=== PATIENT | male | born 1940 | race Caucasian/White ===

== ENCOUNTER 2019-02-08 19:43 | Emergency (ER) | payer MEDICARE ==
[2019-02-08] MEDS ORDERED: Aspirin 81 mg CHEW TAB* 81 MG TAB.CHEW PO ONE (19:57)
--- NOTE | 2019-02-08 20:02 | UC ---
Cardiac HPI - HPI Summary HPI Summary: 78-year-old male comes in with a chief complaint of left arm pain. At about 7 PM this evening which is 45 minutes ago he started with left arm pain last about 20 minutes. It is gradually going away on its own. Denies any nausea or sweating or shortness of breath. He was wondering if this might be his heart. - History of Current Complaint Stated Complaint: LEFT ARM PAIN Time Seen by Provider: 02/08/19 19:46 - Allergy/Home Medications Allergies/Adverse Reactions: Allergies Allergy/AdvReac Type Severity Reaction Status Date / Time celecoxib [From Celebrex] Allergy Unknown recommended Verified 02/08/19 20:06 to avoid ketorolac [From Toradol] Allergy Unknown recommended Verified 02/08/19 20:06 to avoid NSAIDS (Non-Steroidal Allergy Unknown recommended Verified 02/08/19 20:06 Anti-Inflamma to avoid Home Medications: Home Medications Hydrochlorothiazide TAB* [Hydrodiuril TAB*] 25 mg PO DAILY 02/08/19 [History Confirmed 02/08/19] Levothyroxine TAB* [Synthroid TAB*] 75 mcg PO DAILY 02/08/19 [History Confirmed 02/08/19] Losartan TAB* [Cozaar TAB*] 50 mg PO DAILY 02/08/19 [History Confirmed 02/08/19] Metoprolol Tartrate TAB* [Lopressor TAB*] 50 mg PO DAILY 02/08/19 [History Confirmed 02/08/19] Omeprazole CAP (NF) [Prilosec CAP* 20 MG] 20 mg PO DAILY 02/08/19 [History Confirmed 02/08/19] Ranitidine TAB (NF) [Zantac TAB (NF)] 150 mg PO DAILY 02/08/19 [History Confirmed 02/08/19] Sildenafil Citrate [Viagra] PRN 02/08/19 [History] PMH/Surg Hx/FS Hx/Imm Hx Previously Healthy: Yes Cardiovascular History: Hypertension - Family History Known Family History: Positive: Non-Contributory Review of Systems All Other Systems Reviewed And Are Negative: Yes Constitutional: Positive: Negative Skin: Positive: Negative Eyes: Positive: Negative ENT: Positive: Negative Respiratory: Positive: Negative Cardiovascular: Positive: Other - SEE HPI Gastrointestinal: Positive: Negative Motor: Positive: Negative Neurovascular: Positive: Negative Musculoskeletal: Positive: Negative Neurological: Positive: Negative Psychological: Positive: Negative Is Patient Immunocompromised?: No Physical Exam Triage Information Reviewed: Yes Appearance: Well-Appearing, No Pain Distress, Well-Nourished Vital Signs Reviewed: Yes Eye Exam: Normal Eyes: Positive: Conjunctiva Clear Neck: Positive: Supple Respiratory: Positive: Lungs clear, Normal breath sounds, No respiratory distress Cardiovascular: Positive: RRR Musculoskeletal: Positive: Strength Intact, ROM Intact, Other: - NL B/L RADIAL PULSES. ARMS FROM. Neurological: Positive: Alert, Muscle Tone Normal Psychological Exam: Normal Psychological: Positive: Normal Response To Family, Age Appropriate Behavior Skin Exam: Normal Diagnostics - EKG Cardiac Rate: NL - AT 1746 Cardiac Rhythm: Sinus: Normal - 63BPM Ectopy: None ST Segment: Normal - Assessment/Plan Course Of Treatment: Patient transferred to the [facility] emergency department for cardiac evaluation by ambulance. I spoke with a medical provider at the [facility] emergency department. Aspirin 324mg po given in clinic. - Clinical Impression Provider Diagnosis: Left arm pain Discharge - Sign-Out/Discharge Documenting (check all that apply): Patient Departure All imaging exams completed and their final reports reviewed: No Studies - Discharge Plan Condition: Stable Disposition: TRANS HIGHER LVL OF CARE FAC - Billing Disposition and Condition Condition: STABLE Disposition: Trans Higher Lvl of Care Fac
--- OUTSIDE RECORDS SUMMARY | 2019-02-08 20:08 | XMS REPORT | Continuity of Care Document ---
:1940 External Reference #:[id number] Author Name Kenya Garcia FNP Address [address] [place] [id number] Care Team Providers Name Role Phone Kenya Garcia NP Care Team Information Lavatory Attendant Unavailable Kenya Garcia NP Primary Care Physician Unavailable Payers Date Identification Numbers Payment Provider Subscriber Policy Number: [id number] [employer] Jose Mack PayID: [id number] [address] [place] [address] Expires: 2018 Policy Number: [id number] [facility] Health [facility] Jose Mack PayID: [id number] [address] [place] [address] Problems Active Problems Provider Date Hypothyroidism Kenya Garcia FNP Onset: 04/04/2014 Benign essential hypertension Kenya Garcia FNP Onset: 04/04/2014 Thrombocytopenic disorder Khalida Kirkland FNP Onset: 09/19/2013 Gastroesophageal reflux disease Khalida Kirkland FNP Onset: 09/18/2013 Chronic kidney disease stage 3 Kenya Garcia FNP Onset: 10/20/2016 Note: Lab: 10/13/16 - Comprehensive Metabolic Panel Hypercalcemia Deanna Gaviria MD Onset: 11/24/2017 Gastro-esophageal reflux disease with Zaid Zhong MD,FACS Onset: 2017 esophagitis Diaphragmatic hernia Kushal Delvalle MD Onset: 06/21/2018 Heartburn Zaid Zhong MD,FACS Onset: 06/28/2018 Resolved Problems Disorder of peritoneum Khalida Kirkland FNP Onset: 09/19/2013 Resolved: 04/10/2015 Decreased renal function Kenya Garcia MAYURI Onset: 07/22/2016 Resolved: 12/15/2016 Note: BUN 27, creatine 1.5 Family History Date Family Member(s) Observation Comments General Non Contributory Father Multiple Sclerosis Mother No Current Problems Social History Type Date Description Comments Sex Unknown Marital Status Single Lives With signficant other- is not Home Environment Lives With girl friend Diet Patient follows no dietary restrictions Occupation Retired Occupation [employer] Work Status Retired Tobacco Use Start: Unknown End: Former Cigarette Smoker started age 15 - 29 + Unknown pack year history - now smoking 8+ pipes a day Smoking Status Reviewed: 12/20/18 Former Cigarette Smoker started age 15 - 29 + pack year history - now smoking 8+ pipes a day Smokeless Tobacco Former Smokeless Tobacco User, Used 10 Times Daily ETOH Use Occasionally consumes drink a few times a alcohol month Tobacco Use Start: Unknown Patient is a current smoker, smokes every day Recreational Drug Use Denies Drug Use Tobacco Use Start: Unknown smokes a pipe Allergies, Adverse Reactions, Alerts Description No Known Drug Allergies Medications Active Medications SIG Qnty Indications Ordering Date Provider Omeprazole 1 by mouth every 30caps K21.9 Mook, 20mg Capsules DR gage Fatima MD 9 Losartan Potassium 1 by mouth every 90tabs Myron Mackenzie, 50mg Tablets day 8 Levothyroxine Sodium 1 by mouth every 30tabs E03.9 [place], 75mcg day Jenniferleigh, 7 Tablets CATERING COORDINATOR Viagra use one hour prior 9tabs [facility], 100mg Tablets to sexual Jenniferleigh, 6 intercourse CATERING COORDINATOR Metoprolol Succinate ER 1 by mouth every 30tabs Clune, 50mg day Jenniferleigh, 4 Tablets ER 24HR CATERING COORDINATOR Hydrochlorothiazide 1 by mouth every 30tabs Clune, 25mg day Jenniferleigh, 0 Tablets CATERING COORDINATOR Dok take one capsule 60caps Clune, 100mg Capsules by mouth twice a Jenniferleigh, 0 day as needed CATERING COORDINATOR Miralax 1 packet by mouth Unknown 3350NF Packet daily as needed 0 for constipation Ranitidine 150 Maximum 1 tab by mouth 30tabs [place], Strength once a day Jenniferleigh, 0 150mg Tablets CATERING COORDINATOR History Medications Omeprazole take 1 capsule by 30caps K22.10 Myron Mackenzie 01/11/2018 - 40mg mouth once daily 12/20/[address] Villegas 1 by mouth every day 90tabs Khadra, 11/01/2017 - 80mg Tablets MD Deanna 04/12/2018 Miralax 1 tablespoon in 8 510gm K59.00 [place], 10/13/2017 - 3350NF Powder ounces of water once [facility] 03/03/2018 to twice a day , CATERING COORDINATOR Colace one once a day for 90caps K59.00 [place], 09/29/2017 - 100mg Capsules constipation [facility] 03/03/2018 , CATERING COORDINATOR Ranitidine HCL 1 by mouth twice 60tabs [place], 12/23/2016 - 150mg daily for acid [facility] 06/28/2018 Tablets reflux , CATERING COORDINATOR Levothyroxine Sodium take 1 tablet by 90tabs E03.9 [place], 12/17/2015 - mouth once daily [facility] 07/07/2017 50mcg Tablets , CATERING COORDINATOR Omeprazole 1 by mouth every day 90caps K21.9 [place], 12/17/2015 - 40mg [facility] 12/23/2016 Capsules , CATERING COORDINATOR Zostavax to be given 1units [place], [facility] 115[facility]0.65[facility] , CATERING COORDINATOR Solution Rec Cialis 1 by mouth every day 4tabs N52.2 [place], 04/10/2015 - 5mg Tablets (*in place of Jenniferleigh Unknown viagra*) , CATERING COORDINATOR Z76.0 Hydrochlorothiazide take 1 tablet by 90tabs I10 [place], 04/10/2015 - 25mg mouth once daily [facility], 11/01/2017 Tablets CATERING COORDINATOR Prednisone 3 tabs daily 10tabs Viv 09/20/2014 - 20mg Tablets MD Alisson 01/01/2015 Viagra one tablet by 6tabs 607.84 Nam, 05/14/2014 - 50mg Tablets mouth 1 hour MD Alisson 04/10/2015 prior to sexual intercourse Naproxen Sodium otc as per Viv, 04/04/2014 - 220mg package MD Alisson 06/06/2015 Capsules directions as needed Calcium 500/D 2 tablets po qday 60tabs Viv, 11/02/2013 - MD Alisson 10/27/2017 [id number] Tablets Ferrous Sulfate 1 po bid 30tabs Viv, 09/19/2013 - 325(65Fe) MD Alisson Unknown mg Tablets Levothyroxine Sodium 1 by mouth every 30tabs E03.9 [place], 09/18/2013 - 25mcg gage Zambrano, 12/17/2015 Tablets CATERING COORDINATOR Omeprazole 1 by mouth every 90caps K21.9 [facility], 09/15/2013 - 20mg Capsules DR gage Zambrano, 12/17/2015 CATERING COORDINATOR Sennosides 1po bid 120tabs Nam, 09/15/2013 - 8.6mg Tablets MD Alisson Unknown Prednisone PO Daily - as per Unknown - 5mg Tablets Hem/Onc 01/01/15 04/10/2015 Calcium 600+D High 2 by mouth every Unknown - Potency day->holding due 11/01/2017 [id number] to hypercalcemia Tablets Immunizations CPT Code Status Date Vaccine Lot # [id number] Given 06/22/2018 Influenza High Dose [id number] 83325 Given 07/06/2017 Influenza High Dose [id number] Given 07/01/2016 Influenza Vaccine (Fluzone) Age 3 And Older [id number] 77733 Given 07/01/2016 Pneumococcal Conjugate Vaccine 13 Valent For [id number] Intramuscular Use 74714 Given 06/06/2015 Pneumovax Injection [id number] Q2038 Given 05/27/2015 Influenza Vaccine (Fluzone) Age 3 And Older [id number] Vital Signs Date Vital Result Comment 12/20/2018 10:02am BP Systolic 90 mmHg BP Diastolic 62 mmHg Heart Rate 86 /min Respiratory Rate 18 /min Height 68 inches 5'8" Weight 206.00 lb BMI (Body Mass Index) 31.3 kg/m2 BSA (Body Surface Area) 2.07 m2 [place] body weight in kilograms 70 kg O2 % BldC Oximetry 98 % 12/20/2018 8:35am BP Systolic Sitting Left Arm 100 mmHg BP Diastolic Sitting Left Arm 56 mmHg Heart Rate 78 /min Respiratory Rate 16 /min Height 68 inches 5'8" Weight 206.00 lb BMI (Body Mass Index) 31.3 kg/m2 BSA (Body Surface Area) 2.07 m2 [place] body weight in kilograms 70 kg O2 % BldC Oximetry 98 % Ra 12/13/2018 9:54am BP Systolic Sitting Right Arm 110 mmHg BP Diastolic Sitting Right Arm 68 mmHg Body Temperature 97.2 F Heart Rate 63 /min Respiratory Rate 18 /min Height 68 inches 5'8" Weight 206.00 lb BMI (Body Mass Index) 31.3 kg/m2 BSA (Body Surface Area) 2.07 m2 [place] body weight in kilograms 70 kg O2 % BldC Oximetry 97 % Ra 06/28/2018 2:46pm BP Systolic 119 mmHg BP Diastolic 72 mmHg Heart Rate 66 /min Respiratory Rate 17 /min Height 68 inches 5'8" Weight 202.00 lb BMI (Body Mass Index) 30.7 kg/m2 BSA (Body Surface Area) 2.05 m2 [place] body weight in kilograms 70 kg O2 % BldC Oximetry 93 % 06/22/2018 2:38pm BP Systolic Sitting Right Arm 122 mmHg BP Diastolic Sitting Right Arm 70 mmHg Body Temperature 97.4 F Heart Rate 67 /min Respiratory Rate 22 /min Height 68 inches 5'8" Weight 199.12 lb BMI (Body Mass Index) 30.3 kg/m2 BSA (Body Surface Area) 2.04 m2 [place] body weight in kilograms 70 kg O2 % BldC Oximetry 90 % 06/21/2018 8:28am BP Systolic Sitting Left Arm 110 mmHg BP Diastolic Sitting Left Arm 60 mmHg Heart Rate 72 /min Respiratory Rate 16 /min Height 68 inches 5'8" Weight 201.00 lb BMI (Body Mass Index) 30.6 kg/m2 BSA (Body Surface Area) 2.05 m2 [place] body weight in kilograms 70 kg 05/25/2018 10:25am BP Systolic Sitting Left Arm 110 mmHg BP Diastolic Sitting Left Arm 68 mmHg Body Temperature 97.8 F Heart Rate 61 /min Height 68 inches 5'8" Weight 194.00 lb BMI (Body Mass Index) 29.5 kg/m2 BSA (Body Surface Area) 2.02 m2 [place] body weight in kilograms 70 kg O2 % BldC Oximetry 97 % 04/11/2018 10:03am BP Systolic Sitting Right Arm 116 mmHg BP Diastolic Sitting Right Arm 70 mmHg Heart Rate 67 /min Respiratory Rate 14 /min Height 68 inches 5'8" Weight 192.50 lb BMI (Body Mass Index) 29.3 kg/m2 BSA (Body Surface Area) 2.01 m2 [place] body weight in kilograms 70 kg O2 % BldC Oximetry 97 % 03/03/2018 8:41am BP Systolic Sitting Left Arm 103 mmHg BP Diastolic Sitting Left Arm 64 mmHg Heart Rate 65 /min Respiratory Rate 16 /min Height 68 inches 5'8" Weight 189.00 lb BMI (Body Mass Index) 28.7 kg/m2 BSA (Body Surface Area) 2.00 m2 [place] body weight in kilograms 70 kg 01/11/2018 8:54am BP Systolic Sitting Left Arm 100 mmHg BP Diastolic Sitting Left Arm 60 mmHg Heart Rate 80 /min Respiratory Rate 16 /min Height 68 inches 5'8" Weight 188.00 lb BMI (Body Mass Index) 28.6 kg/m2 BSA (Body Surface Area) 1.99 m2 [place] body weight in kilograms 70 kg 12/23/2017 11:00am BP Systolic Sitting Left Arm 110 mmHg BP Diastolic Sitting Left Arm 64 mmHg Heart Rate 70 /min Respiratory Rate 16 /min Height 68 inches 5'8" Weight 194.00 lb BMI (Body Mass Index) 29.5 kg/m2 BSA (Body Surface Area) 2.02 m2 [place] body weight in kilograms 70 kg 12/14/2017 10:44am BP Systolic Sitting Left Arm 118 mmHg BP Diastolic Sitting Left Arm 64 mmHg Heart Rate 76 /min Respiratory Rate 18 /min Height 68 inches 5'8" Weight 197.50 lb BMI (Body Mass Index) 30.0 kg/m2 BSA (Body Surface Area) 2.03 m2 [place] body weight in kilograms 70 kg 11/24/2017 11:38am BP Systolic Sitting Left Arm 115 mmHg BP Diastolic Sitting Left Arm 56 mmHg Heart Rate 67 /min Respiratory Rate 12 /min Height 68 inches 5'8" Weight 199.00 lb BMI (Body Mass Index) 30.3 kg/m2 BSA (Body Surface Area) 2.04 m2 [place] body weight in kilograms 70 kg 10/27/2017 3:00pm BP Systolic Sitting Right Arm 132 mmHg BP Diastolic Sitting Right Arm 79 mmHg Heart Rate 82 /min Respiratory Rate 16 /min Height 68 inches 5'8" Weight 196.00 lb BMI (Body Mass Index) 29.8 kg/m2 BSA (Body Surface Area) 2.03 m2 [place] body weight in kilograms 70 kg 10/13/2017 10:11am BP Systolic Sitting Left Arm 128 mmHg BP Diastolic Sitting Left Arm 72 mmHg Heart Rate 80 /min Respiratory Rate 18 /min Height 68 inches 5'8" Weight 201.12 lb BMI (Body Mass Index) 30.6 kg/m2 BSA (Body Surface Area) 2.05 m2 [place] body weight in kilograms 70 kg 09/29/2017 8:29am BP Systolic Sitting Left Arm 124 mmHg BP Diastolic Sitting Left Arm 72 mmHg Heart Rate 72 /min Respiratory Rate 18 /min Height 68 inches 5'8" Weight 198.38 lb BMI (Body Mass Index) 30.2 kg/m2 BSA (Body Surface Area) 2.04 m2 [place] body weight in kilograms 70 kg 07/06/2017 1:32pm BP Systolic Sitting Left Arm 120 mmHg BP Diastolic Sitting Left Arm 78 mmHg Heart Rate 66 /min Height 68 inches 5'8" Weight 203.00 lb BMI (Body Mass Index) 30.9 kg/m2 BSA (Body Surface Area) 2.06 m2 [place] body weight in kilograms 70 kg 12/23/2016 1:20pm BP Systolic 131 mmHg BP Diastolic 76 mmHg Body Temperature 97.6 F Heart Rate 77 /min Respiratory Rate 20 /min Height 68 inches 5'8" Weight 200.00 lb with boots BMI (Body Mass Index) 30.4 kg/m2 BSA (Body Surface Area) 2.04 m2 [place] body weight in kilograms 70 kg O2 % BldC Oximetry 97 % 07/01/2016 1:07pm BP Systolic Sitting Left Arm 124 mmHg BP Diastolic Sitting Left Arm 74 mmHg Heart Rate 76 /min Respiratory Rate 18 /min Height 68 inches 5'8" Weight 197.00 lb BMI (Body Mass Index) 30.0 kg/m2 BSA (Body Surface Area) 2.03 m2 [place] body weight in kilograms 70 kg 03/18/2016 1:06pm BP Systolic Sitting Left Arm 126 mmHg BP Diastolic Sitting Left Arm 70 mmHg Heart Rate 72 /min Respiratory Rate 18 /min Height 68 inches 5'8" Weight 184.00 lb BMI (Body Mass Index) 28.0 kg/m2 BSA (Body Surface Area) 1.97 m2 [place] body weight in kilograms 70 kg 12/17/2015 1:14pm BP Systolic 124 mmHg BP Diastolic 76 mmHg Height 68 inches 5'8" Weight 197.38 lb BMI (Body Mass Index) 30.0 kg/m2 BSA (Body Surface Area) 2.03 m2 08/07/2015 8:43am BP Systolic Sitting Left Arm 134 mmHg BP Diastolic Sitting Left Arm 82 mmHg Heart Rate 79 /min Respiratory Rate 18 /min Height 68 inches 5'8" Weight 210.00 lb BMI (Body Mass Index) 31.9 kg/m2 BSA (Body Surface Area) 2.09 m2 06/06/2015 2:17pm BP Systolic 126 mmHg BP Diastolic 76 mmHg Heart Rate 78 /min Respiratory Rate 18 /min Height 68 inches 5'8" Weight 204.00 lb BMI (Body Mass Index) 31.0 kg/m2 BSA (Body Surface Area) 2.06 m2 04/10/2015 1:10pm BP Systolic 152 mmHg 148/88 on repeat, sitt BP Diastolic 88 mmHg 148/88 on repeat, sitt Heart Rate 64 /min Respiratory Rate 20 /min Weight 206.50 lb 10/11/2014 1:47pm BP Systolic 114 mmHg BP Diastolic 72 mmHg Weight 208.00 lb 05/14/2014 9:36am BP Systolic 134 mmHg BP Diastolic 86 mmHg Weight 194.00 lb 04/20/2014 11:19am BP Systolic 118 mmHg BP Diastolic 76 mmHg Weight 194.00 lb 04/04/2014 1:06pm BP Systolic 126 mmHg BP Diastolic 74 mmHg Weight 194.00 lb 01/02/2014 1:08pm BP Systolic 126 mmHg BP Diastolic 74 mmHg Heart Rate 80 /min Respiratory Rate 18 /min Height 68 inches 5'8" Weight 191.00 lb 11/02/2013 1:19pm BP Systolic 130 mmHg BP Diastolic 70 mmHg Body Temperature 98.7 F Heart Rate 60 /min Height 68 inches 5'8" 09/28/2013 1:43pm BP Systolic 160 mmHg BP Diastolic 100 mmHg Body Temperature 99.1 F Heart Rate 80 /min Height 68 inches 5'8" Weight 179.00 lb 09/15/2013 1:20pm BP Systolic 150 mmHg BP Diastolic 80 mmHg Body Temperature 99.0 F Heart Rate 80 /min Height 68 inches 5'8" Weight 186.00 lb Results Test Date Facility Test Result H/L Range Note Basic Metabolic Panel 12/15/2018 [facility] Glucose 104 mg/dL N 74-106 [address] [place], [place] [id number] [phone] BUN 26 mg/dL High 7-18 Creatinine 1.6 mg/dL High 0.6-1.3 Glom Filtration Rate, Estimate 45 mL/min >60 If 54 mL/min >60 2 BUN/Creat 16.2 ratio Sodium 139 mmol/L N 136-145 Potassium 4.5 mmol/L N 3.5-5.1 Chloride 105 mmol/L N 98-107 Carbon Dioxide 27 mmol/L N 21-32 Anion Gap 7 mEq/L Low 8-16 Calcium 9.3 mg/dL N 8.5-10.1 Laboratory test 12/15/2018 [facility] Phosphorous 2.7 mg/dL N 2.5-4.0 finding [address] [place], [place] [id number] [phone] Magnesium 2.4 mg/dL N 1.8-2.4 Protein/Creatinine 12/15/2018 [facility] Creatinine,Urine 130.8 Not Ratio,Urine [address] mg/dL [facility]. [place], [place] [id number] [phone] Protein,Total,Urine 11.4 mg/dL Not Estab. Protein/Creatinine Ratio 87 MG/GCRE 0-200 3 Ua RFX Micro & Culture 12/15/2018 [facility] Urine Color YELLOW Yellow II [address] [place], [place] [id number] [phone] Urine Clarity CLEAR Clear Urine Glucose - Dipstick NEGATIVE mg/dL Negative Urine Bilirubin - Dipstick NEGATIVE Negative Urine Ketone NEGATIVE mg/dL Negative Urine Specific [place] 1.020 N 1.010-1.030 Urine Blood NEGATIVE Negative Urine PH 6.0 Low 6.5-7.5 Urine Protein - Dipstick NEGATIVE mg/dL Negative Urine Urobilinogen - Dipstick 0.2 E.U./dL N 0.2-1.0 Urine Nitrite - Dipstick NEGATIVE Negative Urine Leuk Esterase NEGATIVE Negative Source: URINE, CLEAN CAT <SEE NOTE> 4 Laboratory test 12/15/2018 [facility] Vitamin 30.5 30.0-100.0 [address] D,25-Hydroxy ng/[place] [address] [phone] Laboratory test 12/15/2018 [facility] Commons Av Thyroid Stim 4.05 N 0.30- 4.20 [address] Hormone uIU/[place] [address] [phone] Direct LDL 12/15/2018 [facility] [address] LDL Chol. 115 High 0-99 [address] (Direct) mg/[place] [address] [phone] Comprehensive 06/13/2018 [facility] Glucose 107 High 74-106 Metabolic Panel [address] mg/[place] [address] [phone] BUN 22 mg/dL High 7-18 Creatinine 1.5 mg/dL High 0.6-1.3 Glom Filtration Rate, Estimate 48 mL/min >60 If 58 mL/min >60 8 BUN/Creat 14.6 ratio Sodium 141 mmol/L N 136-145 Potassium 4.2 mmol/L N 3.5-5.1 Chloride 108 mmol/L High 98-107 Carbon Dioxide 26 mmol/L N 21-32 Anion Gap 7 mEq/L Low 8-16 Calcium 8.6 mg/dL N 8.5-10.1 Total Protein 7.2 g/dL N 6.4-8.2 Albumin 3.7 g/dL N 3.4-5.0 Globulin 3.5 g/dL N 1.9-4.3 Alb/Glob 1.1 ratio Bilirubin,Total 0.5 mg/dL N 0.2-1.0 Sgot/Ast 19 U/L N 15-37 SGPT/Alt 27 U/L N 12-78 Alkaline Phosphatase 51 U/L N 45-117 Laboratory test 06/13/2018 [facility] Vitamin 33.4 ng/mL 30.0-100.0 [address] D,25[place] [address] [phone] Ua RFX Micro & 06/13/2018 [facility] Urine Color YELLOW Yellow Culture II [address] [place] [address] [phone] Urine Clarity CLEAR Clear Urine Glucose - Dipstick NEGATIVE mg/dL Negative Urine Bilirubin - Dipstick NEGATIVE Negative Urine Ketone NEGATIVE mg/dL Negative Urine Specific [place] 1.015 N 1.010-1.030 Urine Blood NEGATIVE Negative Urine PH 6.5 N 6.5-7.5 Urine Protein - Dipstick NEGATIVE mg/dL Negative Urine Urobilinogen - Dipstick 0.2 E.U./dL N 0.2-1.0 Urine Nitrite - Dipstick NEGATIVE Negative Urine Leuk Esterase NEGATIVE Negative Protein/Creatinine 06/13/2018 [facility] Creatinine,Urine 123.2 Not Ratio,Urine [address] mg/[place] [address] [phone] Protein,Total,Urine 10.8 mg/dL Not Estab. Protein/Creatinine Ratio 88 MG/GCRE 0-200 10 Laboratory test 06/13/2018 [facility] Phosphorous 2.6 mg/dL N 2.5-4.[address] [place] [address] [phone] PTH,Intact 36 pg/mL 15-65 11 Magnesium 2.2 mg/dL N 1.8-2.4 Basic Metabolic Panel 11/22/2017 [facility] Glucose 89 mg/dL N 74-[address] [place] [address] [phone] BUN 22 mg/dL High 7-18 Creatinine 1.4 mg/dL High 0.6-1.3 Glom Filtration Rate, Estimate 52 mL/min >60 If >60 mL/min >60 12 BUN/Creat 15.7 ratio Sodium 142 mmol/L N 136-145 Potassium 4.3 mmol/L N 3.5-5.1 Chloride 108 mmol/L High 98-107 Carbon Dioxide 27 mmol/L N 21-32 Anion Gap 7 mEq/L Low 8-16 Calcium 8.9 mg/dL N 8.5-10.1 Laboratory test 10/27/2017 [facility] Vitamin 40.6 30.0-100.0 13, finding [address],25-Hydroxy ng/mL 14 [place] [address] [phone] Comprehensive 10/27/2017 [facility] Glucose 93 mg/dL N 74-106 Metabolic Panel [address] [place] [address] [phone] BUN 23 mg/dL High 7-18 Creatinine 1.5 mg/dL High 0.6-1.3 Glom Filtration Rate, Estimate 48 mL/min >60 If 58 mL/min >60 15 BUN/Creat 15.3 ratio Sodium 139 mmol/L N 136-145 Potassium 4.1 mmol/L N 3.5-5.1 Chloride 104 mmol/L N 98-107 Carbon Dioxide 29 mmol/L N 21-32 Anion Gap 6 mEq/L Low 8-16 Calcium 10.3 mg/dL High 8.5-10.1 Total Protein 7.2 g/dL N 6.4-8.2 Albumin 4.0 g/dL N 3.4-5.0 Globulin 3.2 g/dL N 1.9-4.3 Alb/Glob 1.3 ratio Bilirubin,Total 0.5 mg/dL N 0.2-1.0 Sgot/Ast 19 U/L N 15-37 SGPT/Alt 21 U/L N 12-78 Alkaline Phosphatase 46 U/L N 45-117 Ua RFX Micro & Culture 10/27/2017 [facility] Urine Color YELLOW Yellow II [address] [place] [address] [phone] Urine Clarity CLEAR Clear Urine Glucose - Dipstick NEGATIVE mg/dL Negative Urine Bilirubin - Dipstick NEGATIVE Negative Urine Ketone NEGATIVE mg/dL Negative Urine Specific [place] 1.010 N 1.010-1.030 Urine Blood NEGATIVE Negative Urine PH 7.5 N 6.5-7.5 Urine Protein - Dipstick NEGATIVE mg/dL Negative Urine Urobilinogen - Dipstick 0.2 E.U./dL N 0.2-1.0 Urine Nitrite - Dipstick NEGATIVE Negative Urine Leuk Esterase NEGATIVE Negative Source: URINE, CLEAN CAT <SEE NOTE> 16 Protein/Creatinine 10/27/2017 [facility] Creatinine,Urine 86.1 Not Ratio,Urine [address] mg/[place] [address] [phone] Protein,Total,Urine 10.8 mg/dL Not Estab. Protein/Creatinine Ratio 125 MG/GCRE 0-200 17 Laboratory test 10/27/2017 [facility] Phosphorous 3.5 mg/dL N 2.5-4.0 finding [address] [place] [address] [phone] PTH,Intact 16 pg/mL 15-65 18 Magnesium 2.0 mg/dL N 1.8-2.4 Laboratory test 09/06/[address] [facility] [address] Thyroid Stim 2.98 uIU/mL N 0.30-4.[address] [place] [address] [place] [address] [phone] Basic Metabolic 09/06/[address] [facility] [address] [facility] [address] Glucose 101 mg/dL N 74-[address] [place] [address] [phone] BUN 25 mg/dL High 7-18 Creatinine 1.7 mg/dL High 0.6-1.3 Glom Filtration Rate, Estimate 42 mL/min >60 If 51 mL/min >60 19 BUN/Creat 14.7 ratio Sodium 142 mmol/L N 136-145 Potassium 4.2 mmol/L N 3.5-5.1 Chloride 106 mmol/L N 98-107 Carbon Dioxide 30 mmol/L N 21-32 Anion Gap 6 mEq/L Low 8-16 Calcium 10.2 mg/dL High 8.5-10.1 Laboratory test 07/06/[address] [facility] [address] [facility] [address] Thyroid 5.87 High 0.30-4.20 [address] [place] [address] Stim uIU/[place] [address] Hormone [phone] Comprehensive 07/06/[address] [facility] [address] [facility] [address] Glucose 83 mg/dL N 74-106 Metabolic Panel [address] [place] [address] [phone] BUN 28 mg/dL High 7-18 Creatinine 1.5 mg/dL High 0.6-1.3 Glom Filtration Rate, Estimate 48 mL/min >60 If 58 mL/min >60 21 BUN/Creat 18.6 ratio Sodium 138 mmol/L N 136-145 Potassium 4.1 mmol/L N 3.5-5.1 Chloride 107 mmol/L N 98-107 Carbon Dioxide 26 mmol/L N 21-32 Anion Gap 5 mEq/L Low 8-16 Calcium 9.0 mg/dL N 8.5-10.1 Total Protein 7.5 g/dL N 6.4-8.2 Albumin 3.9 g/dL N 3.4-5.0 Globulin 3.6 g/dL N 1.9-4.3 Alb/Glob 1.1 ratio Bilirubin,Total 0.4 mg/dL N 0.2-1.0 Sgot/Ast 17 U/L N 15-37 SGPT/Alt 26 U/L N 12-78 Alkaline Phosphatase 46 U/L N 45-117 CBS W/Automated Diff 07/06/2017 [facility] [address] White Blood 8.4 K/uL N 3.4-10.[address] [place] [address] [phone] Red Blood Count 5.14 M/uL N 4.20-5.80 Hemoglobin 14.2 gm/dL N 12.8-17.0 Hematocrit 43.7 % N 38.0-48.0 Mean Cell Volume 85.0 fl N 80.0-96.0 Mean Corpuscular HGB 27.6 pg N 27.0-33.0 Mean Corpuscular HGB Conc 32.5 g/dL N 31.7-36.0 Platelet Count 223 K/uL N 150-400 Red Cell Distri Width SD 46.8 fl N 36-51 Red Cell Distri Width %CV 15.3 % N 11.6-15.8 Mean Platelet Volume 10.5 fL N 6.6-10.6 Neut% 49.1 % N 33.0-73.0 Lymph % 31.2 % N 20.0-42.0 Henry % 14.1 % High 0.0-10.0 Eo% 5.0 % N 0.0-6.6 Bas% 0.6 % N 0.0-1.1 Neut# 4.15 K/uL N 1.8-7.0 Lymph # 2.63 K/uL N 1.0-4.0 Henry # 1.19 K/uL High 0.0-0.8 Eos # 0.42 K/uL N 0.0-0.5 Baso # 0.05 K/uL N 0.0-0.1 Basic Metabolic Panel 12/23/2016 [facility] Glucose 148 mg/dL High 74-[address] [place] [address] [phone] BUN 24 mg/dL High 7-18 Creatinine 1.6 mg/dL High 0.6-1.3 Glom Filtration Rate, Estimate 45 mL/min >60 If 54 mL/min >60 23 BUN/Creat 15.0 ratio Sodium 141 mmol/L N 136-145 Potassium 3.5 mmol/L N 3.5-5.1 Chloride 105 mmol/L N 98-107 Carbon Dioxide 25 mmol/L N 21-32 Anion Gap 11 mEq/L N 8-16 Calcium 9.1 mg/dL N 8.5-10.1 Glycohemoglobin A1c 12/23/2016 [facility] Glycohemoglobin 6.1 % N 4.2-6.[address] (A1c) [place], [place] [id number] [phone] eAG 128 mg/dL Ua RFX Micro & Culture 12/23/2016 [facility] Urine Color YELLOW Yellow [address] [place], [place] [id number] [phone] Urine Clarity CLEAR Clear Urine Glucose - Dipstick NEGATIVE mg/dL Negative Urine Bilirubin - Dipstick NEGATIVE Negative Urine Ketone NEGATIVE mg/dL Negative Urine Specific [place] 1.020 N 1.010-1.030 Urine Blood NEGATIVE Negative Urine PH 6.0 Low 6.5-7.5 Urine Protein - Dipstick NEGATIVE mg/dL Negative Urine Urobilinogen - Dipstick 0.2 E.U./dL N 0.2-1.0 Urine Nitrite - Dipstick NEGATIVE Negative Urine Leuk Esterase NEGATIVE Negative Source: URINE, CLEAN CAT <SEE NOTE> 26 Laboratory test 12/23/2016 [facility] Urine 12 mg/dL finding [address] Protein,Random [place], [place] [id number] [phone] Protein/Creatin 12/23/2016 [facility] Creatinine,Urine 123.6 Not ine Ratio,Urine [address] mg/dL Estab. [place], [place] [id number] [phone] Protein,Total,Urine 9.9 mg/dL Not Estab. Protein/Creatinine Ratio 80 MG/GCRE 0-200 27 Comprehensive 12/01/2016 [facility] [address] Glucose 108 mg/dL High 74-106 28 Metabolic Panel [address] [place], [place] [id number] [phone] BUN 22 mg/dL High 7-18 Creatinine 1.6 mg/dL High 0.6-1.3 Glom Filtration Rate, Estimate 45 mL/min >60 If 54 mL/min >60 29 BUN/Creat 13.7 ratio Sodium 141 mmol/L N 136-145 Potassium 4.1 mmol/L N 3.5-5.1 Chloride 107 mmol/L N 98-107 Carbon Dioxide 26 mmol/L N 21-32 Anion Gap 8 mEq/L N 8-16 Calcium 9.1 mg/dL N 8.5-10.1 Total Protein 7.4 g/dL N 6.4-8.2 Albumin 3.9 g/dL N 3.4-5.0 Globulin 3.5 g/dL N 1.9-4.3 Alb/Glob 1.1 ratio Bilirubin,Total 0.6 mg/dL N 0.2-1.0 Sgot/Ast 16 U/L N 15-37 SGPT/Alt 28 U/L N 12-78 Alkaline Phosphatase 45 U/L N 45-117 Comprehensive 10/13/2016 [employer] [address] Glucose 107 mg/dL High 74-106 30 Metabolic Panel [address] [place], [place] [id number] [phone] BUN 25 mg/dL High 7-18 Creatinine 1.4 mg/dL High 0.6-1.3 Glom Filtration Rate, Estimate 52 mL/min >60 If >60 mL/min >60 31 BUN/Creat 17.8 ratio Sodium 140 mmol/L N 136-145 Potassium 4.4 mmol/L N 3.5-5.1 Chloride 107 mmol/L N 98-107 Carbon Dioxide 24 mmol/L N 21-32 Anion Gap 9 mEq/L N 8-16 Calcium 9.2 mg/dL N 8.5-10.1 Total Protein 7.2 g/dL N 6.4-8.2 Albumin 3.7 g/dL N 3.4-5.0 Globulin 3.5 g/dL N 1.9-4.3 Alb/Glob 1.1 ratio Bilirubin,Total 0.5 mg/dL N 0.2-1.0 Sgot/Ast 21 U/L N 15-37 SGPT/Alt 32 U/L N 12-78 Alkaline Phosphatase 50 U/L N 45-117 CBS W/Automated 07/01/[address] [facility] [address] White Blood 7.2 K/uL N 3.4- 10.5 32 Diff [address] [facility] [place] [address] [phone] Red Blood Count 5.08 M/uL N 4.20-5.80 Hemoglobin 14.5 gm/dL N 12.8-17.0 Hematocrit 44.2 % N 38.0-48.0 Mean Cell Volume 87.0 fl N 80.0-96.0 Mean Corpuscular HGB 28.5 pg N 27.0-33.0 Mean Corpuscular HGB Conc 32.8 g/dL N 31.7-36.0 Platelet Count 249 K/uL N 150-400 Red Cell Distri Width SD 48.2 fl N 36-51 Red Cell Distri Width %CV 15.3 % N 11.6-15.8 Mean Platelet Volume 10.1 fL N 6.6-10.6 Neut% 54.3 % N 33.0-73.0 Lymph % 27.6 % N 17.0-56.0 Henry % 13.1 % High 0.0-10.0 Eo% 4.6 % N 0.0-5.0 Bas% 0.4 % N 0.1-1.0 Neut# 3.91 K/uL N 1.8-7.0 Lymph # 1.99 K/uL N 1.8-7.0 Henry # 0.94 K/uL High 0.0-0.8 Eos # 0.33 K/uL N 0.0-0.5 Baso # 0.03 K/uL Low 0.1-0.2 Comprehensive Metabolic 07/01/2016 [facility] [address] Glucose 105 mg/dL N 74-106 Panel [address] [place], [place] [id number] [phone] BUN 27 mg/dL High 7-18 Creatinine 1.5 mg/dL High 0.6-1.3 Glom Filtration Rate, Estimate 48 mL/min N >60 If 59 mL/min N >60 33 BUN/Creat 18.0 ratio N Sodium 138 mmol/L N 136-145 Potassium 3.8 mmol/L N 3.5-5.1 Chloride 105 mmol/L N 98-107 Carbon Dioxide 23 mmol/L N 21-32 Anion Gap 10 mEq/L N 8-16 Calcium 8.7 mg/dL N 8.5-10.1 Total Protein 7.1 g/dL N 6.4-8.2 Albumin 3.7 g/dL N 3.4-5.0 Globulin 3.4 g/dL N 1.9-4.3 Alb/Glob 1.1 ratio N Bilirubin,Total 0.6 mg/dL N 0.2-1.0 Sgot/Ast 18 U/L N 15-37 SGPT/Alt 26 U/L N 12-78 Alkaline Phosphatase 51 U/L N 45-117 LDL Cholesterol Profile 07/01/[address] Cholesterol 156 mg/dL N <[address] [place], [place] [address] [phone] Triglycerides 177 mg/dL High <150 35 HDL Cholesterol 24 mg/dL Low >40 36 LDL-Cholesterol 97 mg/dL N < 100 37 Laboratory test 03/18/2016 [facility] Thyroid Stim 3.20 0.30-4.[address] Hormone uIU/[place] [address] [phone] Laboratory test 06/07/2015 [facility] Vitamin 41.5 19.9-79.[address] D,1,25 pg/[place] [address] Dihydroxy [phone] Comprehensive 06/07/2015 [facility] Glucose 110 mg/dL High 74-106 Metabolic Panel [address] [place], [place] [id number] [phone] BUN 23 mg/dL High 7-18 Creatinine 1.4 mg/dL High 0.6-1.3 Glom Filtration Rate, Estimate 53 mL/min >60 If >60 mL/min >60 39 BUN/Creat 16.4 ratio Sodium 138 mmol/L 136-145 Potassium 3.8 mmol/L 3.5-5.1 Chloride 104 mmol/L 98-107 Carbon Dioxide 26 mmol/L 21-32 Anion Gap 8 mEq/L 8-16 Calcium 9.1 mg/dL 8.5-10.1 Total Protein 7.2 g/dL 6.4-8.2 Albumin 3.8 g/dL 3.4-5.0 Globulin 3.4 g/dL 1.9-4.3 Alb/Glob 1.1 ratio Bilirubin,Total 1.0 mg/dL 0.2-1.0 Sgot/Ast 18 U/L 15-37 SGPT/Alt 31 U/L 12-78 Alkaline Phosphatase 57 U/L 45-117 LDL Cholesterol Profile 06/07/2015 [facility] Cholesterol 159 mg/dL <[address] [place], [place] [id number] [phone] Triglycerides 155 mg/dL High <150 41 HDL Cholesterol 21 mg/dL Low >40 42 LDL-Cholesterol 107 mg/dL < 100 43 Laboratory test 06/07/2015 [facility] Thyroid Stim 3.70 uIU/mL 0.36-3.[address] [place] [place] [address] [phone] CBS W/Automated 06/07/2015 [facility] White Blood 8.8 K/uL 3.4-10.[address] [place] [address] [phone] Red Blood Count 5.49 M/uL 4.20-5.80 Hemoglobin 15.6 gm/dL 12.8-17.0 Hematocrit 46.9 % 38.0-48.0 Mean Cell Volume 85.4 fl 80.0-96.0 Mean Corpuscular HGB 28.4 pg 27.0-33.0 Mean Corpuscular HGB Conc 33.3 g/dL 31.7-36.0 Platelet Count 240 K/uL 150-400 Red Cell Distri Width SD 47.7 fl 36-51 Red Cell Distri Width %CV 15.2 % 11.6-15.8 Mean Platelet Volume 9.9 fL 6.6-10.6 Neut% 60.0 % 33.0-73.0 Lymph % 25.0 % 17.0-56.0 Henry % 12.4 % High 0.0-10.0 Eo% 2.3 % 0.0-5.0 Bas% 0.3 % 0.1-1.0 Neut# 5.27 K/uL 1.8-7.0 Lymph # 2.20 K/uL 1.8-7.0 Henry # 1.09 K/uL High 0.0-0.8 Eos # 0.20 K/uL 0.0-0.5 Baso # 0.03 K/uL Low 0.1-0.2 Laboratory test 04/20/2014 N2N/CCD Import Comment See Note 44 finding Testosterone,Free/W 04/20/2014 N2N/CCD Import Testosterone,%Fr 22.5 % 9.0-46.0 eakly Bound ee/Weakly BND Testosterone,Free+Weakly Bound 51.8 ng/dL 40.0-250.0 45 Testosterone,Serum 230 ng/dL Low [phone] Laboratory test 02/07/2014 [facility] Import Thyroid Stim 3.67 uIU/mL 0.49- 4.67 finding Hormone Laboratory test 01/31/2014 N2N/CCD Import Antinuclear Negative . 46 finding Antibodies, Ifa Bas% 0.5 % 0.1-1.0 Baso # 0.03 K/uL Low 0.1-0.2 C-Reactive Protein,Quant 4.3 mg/L 0.0-4.9 Eo% 3.2 % 0.0-5.0 Eos # 0.20 K/uL 0.0-0.5 Hematocrit 44.3 % 38.0-48.0 Hemoglobin 14.8 gm/dL 12.8-17.0 Lymph # 2.15 K/uL 1.2-4.0 Lymph % 34.8 % 17.0-56.0 Mean Cell Volume 85.2 fl 80.0-96.0 Mean Corpuscular HGB 28.5 pg 27.0-33.0 Mean Corpuscular HGB Conc 33.4 g/dL 31.7-36.0 Mean Platelet Volume 11.9 fL High 6.6-10.6 Henry # 0.76 K/uL High 0.0-0.6 Henry % 12.3 % High 0.0-10.0 Neut# 3.03 K/uL 1.8-7.0 Neut% 49.2 % 33.0-73.0 Platelet Count 63 K/uL Low 150-400 Red Blood Count 5.20 M/uL 4.20-5.80 Red Cell Distri Width %CV 15.4 % 11.6-15.8 Red Cell Distri Width SD 47.5 fl 36-51 Sedimentation Rate 3 mm/hr 0-20 White Blood Count 6.2 K/uL 3.4-10.5 Comprehensive Metabolic Panel 01/31/2014 N2N/CCD Import Alb/Glob 1.1 ratio Albumin 3.8 g/dL 3.5-5.0 Alkaline Phosphatase 68 U/L 50-136 Anion Gap 10 mEq/L 8-16 BUN 20 mg/dL 5-23 BUN/Creat 16.6 ratio Bilirubin,Total 0.7 mg/dL 0.2-1.2 Calcium 8.7 mg/dL 8.5-10.1 Carbon Dioxide 24 mEq/L 18-29 Chloride 111 mmol/L High 98-107 Creatinine 1.2 mg/dL 0.5-1.4 Globulin 3.5 g/dL 1.9-4.3 Glom Filtration Rate, Estimate >60 mL/min >60 Glucose 99 mg/dL 76-115 If >60 mL/min >60 47 Potassium 3.9 mmol/L 3.5-5.1 SGPT/Alt 22 U/L Low 30-65 Sgot/Ast 13 U/L Low 16-40 Sodium 141 mmol/L 136-145 Total Protein 7.3 g/dL 6.3-8.0 CBC 09/26/2013 [employer] Import Hematocrit 40.0 % 38.0-48.0 Hemoglobin 12.8 gm/dL 12.8-17.0 Mean Cell Volume 90.3 fl 80.0-96.0 Mean Corpuscular HGB 28.9 pg 27.0-33.0 Mean Corpuscular HGB Conc 32.0 g/dL 31.7-36.0 Mean Platelet Volume 10.2 fL 6.6-10.6 Platelet Count 123 K/uL Low 150-400 Red Blood Count 4.43 M/uL 4.20-5.80 Red Cell Distri Width %CV 14.8 % 11.6-15.8 White Blood Count 6.5 K/uL 3.4-10.5 Laboratory test 09/21/2013 [employer] Import Platelet Count 50 K/uL Low 150- 400 finding Laboratory test 09/20/2013 [employer] Import Platelet Count 57 K/uL Low 150- 400 finding Laboratory test 09/20/2013 [employer] Import Antinuclear Negative . 48 finding Antibodies, Ifa Complement C3, Serum 120 mg/dL 90-180 49 Complement C4, Serum 29 mg/dL 9-36 50 Complement, Total (CH50) > 63 U/mL High 22-60 51 HSV Types 1 + 2, Igm <0.91 Ratio 0.00-0.90 52 Heparin Induced Platelet AB 0.256 OD 0.000-0.400 53 Hepatitis C Antibody Nonreactive Nonreactive Signal/Cutoff ratio 0.65 <0.80 54 Antineutrophil 09/20/2013 N2N/CCD Import Atypical pANCA <1:20 titer Neg: <1:20 55 Cytoplasmic AB Cytoplasmic (C-Anca) <1:20 titer Neg:<1:20 Perinuclear (P-Anca) <1:20 titer Neg:<1:20 56 Hepatitis 09/20/2013 N2N/CCD Import Hepatitis A Nonreactive 57 Evaluation Antibody IgM Nonreactive Hepatitis B Core IgM Nonreactive Nonreactive 58 Hepatitis B Surface Antigen Nonreactive Nonreactive 59 Hepatitis C Antibody Nonreactive Nonreactive Signal/Cutoff ratio 0.65 <0.80 60 Laboratory test 09/20/2013 N2N/CCD Import C-Reactive 12.4 mg/L High 0.0- 4.9 finding Protein,Quant Sedimentation Rate 10 mm/hr 0-20 61 Laboratory test 09/20/2013 N2N/CCD Import C-Reactive See Note 62 finding Protein,Quant Sedimentation Rate See Note 63 Laboratory test finding 09/20/2013 N2N/CCD Import Abo/RH Type A Neg 64 LR Platelet Pheresis,Each Unit See Note 65 CBC/Manual Differential 09/20/2013 N2N/CCD Import Atypical Lymph% 2 % 0- 7 Band% 3 % 0-8 Differential Comment See Note 66 Eosinophil% 5 % 0-5 Hematocrit 36.8 % Low 38.0-48.0 Hemoglobin 12.0 gm/dL Low 12.8-17.0 Lymph% 24 % 17-56 Mean Cell Volume 89.5 fl 80.0-96.0 Mean Corpuscular HGB 29.2 pg 27.0-33.0 Mean Corpuscular HGB Conc 32.6 g/dL 31.7-36.0 Mean Platelet Volume 13.4 fL High 6.6-10.6 Monocyte% 7 % 0-10 Neutrophils% 59 % 33-73 Platelet Count 29 K/uL Low 150-400 67 Platelet Estimate Marked Decrease RBC Morphology Normal Red Blood Count 4.11 M/uL Low 4.20-5.80 Red Cell Distri Width %CV 14.9 % 11.6-15.8 Total Cells Counted 100 #CELLS White Blood Count 5.2 K/uL 3.4-10.5 Basic Metabolic Panel 09/20/2013 [employer] Import Anion Gap 8 mEq/L 8-16 BUN 13 mg/dL 5-23 BUN/Creat 10.8 ratio Calcium 8.2 mg/dL Low 8.5-10.1 Carbon Dioxide 26 mEq/L 18-29 Chloride 112 mmol/L High 98-107 Creatinine 1.2 mg/dL 0.5-1.4 Glom Filtration Rate, Estimate >60 mL/min >60 Glucose 83 mg/dL 76-115 If >60 mL/min >60 68 Potassium 3.7 mmol/L 3.5-5.1 Sodium 142 mmol/L 136-145 Laboratory test 09/19/2013 [employer] Import Platelet Count 29 K/uL Low 150- 400 69 finding Comprehensive 09/19/2013 [employer] Import Alb/Glob 1.0 ratio Metabolic Panel Albumin 3.4 g/dL Low 3.5-5.0 Alkaline Phosphatase 66 U/L 50-136 Anion Gap 11 mEq/L 8-16 BUN 17 mg/dL 5-23 BUN/Creat 13.0 ratio Bilirubin,Total 0.7 mg/dL 0.2-1.2 Calcium 8.3 mg/dL Low 8.5-10.1 Carbon Dioxide 23 mEq/L 18-29 Chloride 111 mmol/L High 98-107 Creatinine 1.3 mg/dL 0.5-1.4 Globulin 3.5 g/dL 1.9-4.3 Glom Filtration Rate, Estimate 58 mL/min >60 Glucose 128 mg/dL High 76-115 If >60 mL/min >60 70 Potassium 3.5 mmol/L 3.5-5.1 SGPT/Alt 22 U/L Low 30-65 Sgot/Ast 21 U/L 16-40 Sodium 141 mmol/L 136-145 Total Protein 6.9 g/dL 6.3-8.0 Laboratory test 09/19/2013 [employer] Import Act Partial 27.5 s 23.9-34.3 finding Thrombo Time Bas% 0.5 % 0.1-1.0 Baso # 0.03 K/uL Low 0.1-0.2 CK 62 U/L 26-190 D-Dimer, Quantitative 2.06 ug/mL High 71 Eo% 3.8 % 0.0-5.0 Eos # 0.24 K/uL 0.0-0.5 Fibrinogen 493 mg/dL High 188-480 Hematocrit 39.1 % 38.0-48.0 Hemoglobin 12.9 gm/dL 12.8-17.0 Inr 1.0 0.9-1.1 72 Lipase 209 U/L 28-380 Lymph # 1.61 K/uL 1.2-4.0 Lymph % 25.6 % 17.0-56.0 Mean Cell Volume 89.9 fl 80.0-96.0 Mean Corpuscular HGB 29.7 pg 27.0-33.0 Mean Corpuscular HGB Conc 33.0 g/dL 31.7-36.0 Henry # 0.48 K/uL 0.0-0.6 Henry % 7.6 % 0.0-10.0 Neut# 3.93 K/uL 1.8-7.0 Neut% 62.5 % 33.0-73.0 Platelet Count 30 K/uL Low 150-400 Protime 13.0 s 12.1-14.9 Red Blood Count 4.35 M/uL 4.20-5.80 Red Cell Distri Width %CV 15.0 % 11.6-15.8 Red Cell Distri Width SD 48.5 fl 36-51 Troponin-I < 0.02 ng/mL 0.00-0.50 73 White Blood Count 6.3 K/uL 3.4-10.5 Urine Screen 09/19/2013 [employer] Import Urine Bilirubin - Negative Negative Dipstick Urine Blood Negative Negative Urine Clarity Clear Clear Urine Color Yellow Yellow Urine Glucose - Dipstick Negative mg/dL Negative Urine Ketone Negative mg/dL Negative Urine Leuk Esterase Negative Negative Urine Nitrite - Dipstick Negative Negative Urine PH 6.5 6.5-7.5 Urine Protein - Dipstick Negative mg/dL Negative Urine Specific [place] 1.020 1.010-1.030 Urine Urobilinogen - Dipstick 0.2 E.U./dL 0.2-1.0 Comp Metabolic Panel 09/15/2013 N2N/[facility]D Import Albumin 3.6 g/dL 3.2-5.2 Albumin/Globulin Ratio 1.6 1-3 Alkaline Phosphatase 58 U/L 30-110 Alt 21 U/L 14-54 Anion Gap 6.0 mmol/L 2-11 Ast 18 U/L 12-42 BUN/Creatinine Ratio 12.1 8-20 Blood Urea Nitrogen 17 mg/dL 6-24 Calcium 9.6 mg/dL 8.1-9.9 Chloride 103 mmol/L 101-111 Co2 Carbon Dioxide 32.0 mmol/L 22-32 Creatinine 1.40 mg/dL 0.50-1.40 Egfr 64.6 >60 74 Egfr Non- 50.2 >60 Globulin 2.3 g/dL 2-4 Glucose 113 mg/dL High 70-100 Potassium 3.4 mmol/L Low 3.5-5.0 Sodium 141 mmol/L 133-145 Total Bilirubin 0.8 mg/dL 0.4-1.5 Total Protein 5.9 g/dL Low 6.2-8.1 Lipid Profile 09/15/2013 [facility] Import Cholesterol 157 mg/dL Less than (Trig/Chol/HDL) 200 Cholesterol/HDL Ratio 5.2 Average High 1-4.44 HDL Cholesterol 30 mg/dL Low 40-60 75 LDL Cholesterol 105.0 High Less Than 100 76 Triglycerides 110 mg/dL 40-200 CBC Auto Diff 09/15/2013 [facility]N/[facility] Import Abs Basophils 0.1 10^3/uL 0-0.2 Abs Eosinophils 0.3 10^3/uL 0-0.6 Abs Lymphocytes 1.5 10^3/uL 1.0-4.8 Abs Monocytes 0.6 10^3/uL 0-0.8 Abs Neutrophils 4.3 10^3/uL 1.5-7.7 Abs Nucleated RBC 0.01 10^3/uL Basophil % 1.3 % 0-2 Eosinophil % 3.7 % 0-6 Granulocyte % 63.4 % 38-83 Hematocrit 38 % Low 42-52 Hemoglobin 12.4 g/dL Low 14.0-18.0 Lymphocyte % 22.0 % Low 25-47 Mean Corpuscular HGB Conc 33 g/dL 31-36 Mean Corpuscular Hemoglobin 29 pg 27-31 Mean Corpuscular Volume 88 fL 80-94 Mean Platelet Volume 10 um3 7.4-10.4 Monocyte % 9.6 % High 1-9 Nucleated Red Blood Cells % 0.1 Platelet Count 52 10^3/uL Low 150-450 Red Blood Count 4.31 10^6/uL 4.0-5.4 Red Cell Distribution Width 16 % High 10.5-15 White Blood Count 6.7 10^3/uL 4.8-10.8 Laboratory test 09/15/2013 [facility]N/[facility] Import Activated Partial 29.6 s 24.0- 36.1 finding Thrombo Time Inr 0.96 0.85-1.06 Pathologist Review (See Note) 77 TSH (Thyroid Stimulating Horm) 7.58 miu/mL High 0.34-5.60 1 N18.3 N18.3 I10 E03.9 2 Note: Persistent reduction for 3 months or more in an eGFR <60 mL/min/1.73 m2 defines CKD. Patients with eGFR values >/=60 mL/min/1.73 m2 may also have CKD if evidence of persistent proteinuria is present. The original MDRD equation for estimated GFR is not valid for patients less than 18 years of age. Additional information may be found at [email or web address]. 3 INFCE Result Units: mg/g creat Performed at: [address] [id number] [employer]: Jazmin Price MD, Phone: [phone] 4 URINE, CLEAN CATCH 5 Vitamin D deficiency has been defined by the [place] [employer] and an Endocrine Society practice guideline as a level of serum 25-OH vitamin D less than 20 ng/mL (1,2). The Endocrine Society went on to further define vitamin D insufficiency as a level between 21 and 29 ng/mL (2). 1. IOM ([place] [employer]). 2010. Dietary reference intakes for calcium and D. [place]: The National Academies Press. 2. Sarahy MF, Moo NC, Delmi LEVINE, et al. Evaluation, treatment, and prevention of vitamin D deficiency: an Endocrine Society clinical practice guideline. JCEM. 2010; 96(7):1911-30. Performed at: [address] [id number] [employer]: Jazmin Price MD, Phone: [phone] 6 N18.3 7 Performed at: [address] [id number] [employer]: Jazmin Price MD, Phone: [phone] Performed at: [address] [id number] [employer]: Jazmin Price MD, Phone: [phone] 8 Note: Persistent reduction for 3 months or more in an eGFR <60 mL/min/1.73 m2 defines CKD. Patients with eGFR values >/=60 mL/min/1.73 m2 may also have CKD if evidence of persistent proteinuria is present. The original MDRD equation for estimated GFR is not valid for patients less than 18 years of age. Additional information may be found at www.kdoqi.org. 9 Vitamin D deficiency has been defined by the [place] [employer] and an Endocrine Society practice guideline as a level of serum 25-OH vitamin D less than 20 ng/mL (1,2). The Endocrine Society went on to further define vitamin D insufficiency as a level between 21 and 29 ng/mL (2). 1. IOM ([place] [employer]). 2010. Dietary reference intakes for calcium and D. [place]: The National Academies Press. 2. Sarahy MF, Moo NC, Delmi LEVINE, et al. Evaluation, treatment, and prevention of vitamin D deficiency: an Endocrine Society clinical practice guideline. JCEM. 2010; 96(7):1911-30. Performed at: - [facility] [address] [id number] [employer]: Jazmin Price MD, Phone: [phone] INFCE Result Units: mg/g creat Performed at: - [facility] [id number] [employer]: Jazmin Price MD, Phone: [phone] 11 Performed at: [facility] [address] [id number] [employer]: Jazmin Price MD, Phone: [phone] 12 Note: Persistent reduction for 3 months or more in an eGFR <60 mL/min/1.73 m2 defines CKD. Patients with eGFR values >/=60 mL/min/1.73 m2 may also have CKD if evidence of persistent proteinuria is present. The original MDRD equation for estimated GFR is not valid for patients less than 18 years of age. Additional information may be found at www.[email or web address]. 13 N18.3 N18.3 I10 N18.3 I10 N18.3 I10 14 Vitamin D deficiency has been defined by the [place] [employer] and an Endocrine Society practice guideline as a level of serum 25-OH vitamin D less than 20 ng/mL (1,2). The Endocrine Society went on to further define vitamin D insufficiency as a level between 21 and 29 ng/mL (2). 1. IOM ([place] [employer]). 2010. Dietary reference intakes for calcium and D. [place]: The National Academies Press. 2. Sarahy MF, Moo GONZALEZ, Delmi LEVINE, et al. Evaluation, treatment, and prevention of vitamin D deficiency: an Endocrine Society clinical practice guideline. JCEM. 2010; 96(7):1911-30. Performed at: [facility] [id number] [employer]: Jazmin Price MD, Phone: [phone] 15 Note: Persistent reduction for 3 months or more in an eGFR <60 mL/min/1.73 m2 defines CKD. Patients with eGFR values >/=60 mL/min/1.73 m2 may also have CKD if evidence of persistent proteinuria is present. The original MDRD equation for estimated GFR is not valid for patients less than 18 years of age. Additional information may be found at www.[email or web address]. 16 URINE, CLEAN CATCH 17 INFCE Result Units: mg/g creat Performed at: [facility] [id number] [employer]: Jazmin Price MD, Phone: [phone] 18 Performed at: [facility] [id number] [employer]: Jazmin Price MD, Phone: [phone] 19 Note: Persistent reduction for 3 months or more in an eGFR <60 mL/min/1.73 m2 defines CKD. Patients with eGFR values >/=60 mL/min/1.73 m2 may also have CKD if evidence of persistent proteinuria is present. The original MDRD equation for estimated GFR is not valid for patients less than 18 years of age. Additional information may be found at www.[email or web address]. 20 E03.9 N18.3 I10 21 Note: Persistent reduction for 3 months or more in an eGFR <60 mL/min/1.73 m2 defines CKD. Patients with eGFR values >/=60 mL/min/1.73 m2 may also have CKD if evidence of persistent proteinuria is present. The original MDRD equation for estimated GFR is not valid for patients less than 18 years of age. Additional information may be found at [email or web address]. 22 N18.3 23 Note: Persistent reduction for 3 months or more in an eGFR <60 mL/min/1.73 m2 defines CKD. Patients with eGFR values >/=60 mL/min/1.73 m2 may also have CKD if evidence of persistent proteinuria is present. The original MDRD equation for estimated GFR is not valid for patients less than 18 years of age. Additional information may be found at www.kdoqi.org. 24 Elevated levels of HbA1c suggest the need for more aggressive treatment of glycemia. The [place] [employer] recommends that a primary goal of therapy should be a HbA1c of <7% and that physicians should re-evaluate the treatment regimen in patients with HbA1c values consistently >8%. 25 N18.3 N18.3 I10 E03.9 26 URINE, CLEAN CATCH 27 INFCE Result Units: mg/g creat Performed at: RN - [facility] [address] [id number] [employer]: Jazmin Price MD, Phone: [phone] 28 I10 R94.4 29 Note: Persistent reduction for 3 months or more in an eGFR <60 mL/min/1.73 m2 defines CKD. Patients with eGFR values >/=60 mL/min/1.73 m2 may also have CKD if evidence of persistent proteinuria is present. The original MDRD equation for estimated GFR is not valid for patients less than 18 years of age. Additional information may be found at www.[email or web address]. 30 R94.4 31 Note: Persistent reduction for 3 months or more in an eGFR <60 mL/min/1.73 m2 defines CKD. Patients with eGFR values >/=60 mL/min/1.73 m2 may also have CKD if evidence of persistent proteinuria is present. The original MDRD equation for estimated GFR is not valid for patients less than 18 years of age. Additional information may be found at www.[email or web address]. 32 I10 33 Note: Persistent reduction for 3 months or more in an eGFR <60 mL/min/1.73 m2 defines CKD. Patients with eGFR values >/=60 mL/min/1.73 m2 may also have CKD if evidence of persistent proteinuria is present. The original MDRD equation for estimated GFR is not valid for patients less than 18 years of age. Additional information may be found at www.[email or web address]. 34 Reference Guidelines*: Desirable: ........... < 200 mg/dL Borderline High: ..... 200-239 mg/dL High: ................ >=240 mg/dL * The National Cholesterol Education Program (NCEP) 35 Reference Guidelines*: Normal: ............. < 150 mg/dL Borderline High: .... 150-199 mg/dL High: ............... 200-499 mg/dL Very High: .......... > 500 mg/dL * Source: National Cholesterol Education Program (NCEP) 36 Reference Guidelines*: Low HDL: ..... < 40 mg/dL Normal: ..... 40-60 mg/dL Desirable: ... > 60 mg/dL *The National Cholesterol Education Program(NCEP) 37 Reference Guidelines*: Optimal:........... <100 mg/dL Near Optimal....... 100-129 mg/dL Borderline High.... 130-159 mg/dL High............... 160-189 mg/dL Very High.......... >=190 mg/dL * Source: National Cholesterol Education Program (NCEP) 38 Performed at: BN - [facility] [address] [id number] [employer]: Abner Dias MD, Phone: [phone] Note: Persistent reduction for 3 months or more in an eGFR <60 mL/min/1.73 m2 defines CKD. Patients with eGFR values >/=60 mL/min/1.73 m2 may also have CKD if evidence of persistent proteinuria is present. The original MDRD equation for estimated GFR is not valid for patients less than 18 years of age. Additional information may be found at www.kdoqi.org. 40 Reference Guidelines*: Desirable: ........... < 200 mg/dL Borderline High: ..... 200-239 mg/dL High: ................ >=240 mg/dL * The National Cholesterol Education Program (NCEP) 41 Reference Guidelines*: Normal: ............. < 150 mg/dL Borderline High: .... 150-199 mg/dL High: ............... 200-499 mg/dL Very High: .......... > 500 mg/dL * Source: National Cholesterol Education Program (NCEP) 42 Reference Guidelines*: Low HDL: ..... < 40 mg/dL Normal: ..... 40-60 mg/dL Desirable: ... > 60 mg/dL *The National Cholesterol Education Program(NCEP) 43 Reference Guidelines*: Optimal:........... <100 mg/dL Near Optimal....... 100-129 mg/dL Borderline High.... 130-159 mg/dL High............... 160-189 mg/dL Very High.......... >=190 mg/dL * Source: National Cholesterol Education Program (NCEP) 44 Adult male reference interval is based on a population of lean males up to 40 years old. 45 Performed at: [address] [id number] [employer]earing[employer]: Jazmin Price MD, Phone: [phone] Performed at: [facility] [place] [address] [id number] Bearingizer: Abner Dias MD, Phone: [phone] Negative <1:80 Borderline 1:80 Positive >1:80 Performed at: [facility] [address] [id number] Bearingizer: Jazmin Price MD, Phone: [phone] Note: Persistent reduction for 3 months or more in an eGFR <60 mL/min/1.73 m2 defines CKD. Patients with eGFR values >/=60 mL/min/1.73 m2 may also have CKD if evidence of persistent proteinuria is present. The original MDRD equation for estimated GFR is not valid for patients less than 18 years of age. Additional information may be found at www.kdoqi.org. 48 Negative <1:80 Borderline 1:80 Positive >1:80 49 INFCE Result Units: mg/dL Adult 50 INFCE Result Units: mg/dL Adult Performed at: [address] [id number] Bearingizer: Abner Dias MD, Phone: [phone] Performed at: [address] [id number] Bearingizer: Jazmin Price MD, Phone: [phone] Performed at: [address] [id number] Bearingizer: Jazmin Price MD, Phone: [phone] Negative <0.91 Equivocal 0.91 - 1.09 Positive >1.09 Performed at: [address] [id number] Bearingizer: Jazmin Price MD, Phone: [phone] Performed at: [address] [id number] Bearingizer: Abner Dias MD, Phone: [phone] 54 Antibodies to HCV not detected; does not exclude early acute HCV infection. 55 The atypical pANCA pattern has been observed in a significant percentage of patients with ulcerative colitis, primary sclerosing cholangitis and autoimmune hepatitis. 56 The presence of positive fluorescence exhibiting P-ANCA or C-ANCA patterns alone is not specific for the diagnosis of Darinel's Granulomatosis (WG) or microscopic polyangiitis. Decisions about treatment should not be based solely on ANCA IFA results. The International ANCA Group Consensus recommends follow up testing of positive sera with both AL- 3 and MPO-ANCA enzyme immunoassays. As many as 5% serum samples are positive only by EIA. Ref. AM J Clin Pathol 1999;111:507- 513. 57 IgM antibodies to HAV not detected; does not exclude early acute or recovered HAV infection. 58 IgM anti-HBc not detected. Does not exclude the possibility of exposure to or infection with HBV. 59 HBsAg not detected; does not exclude the possibility of exposure to or early acute infections with HBV. 60 Antibodies to HCV not detected; does not exclude early acute HCV infection. 61 CALLED PLT TO CORINE Shcaefer AT 0740 09/20/13 by LAB.OPT 62 MERGING 63 MERGING 64 CALLED RUY AT 1136 09/20/[address] READY CALLED MATT AT 0953 09/20/[address] NOT[address] IS COMING STAT FROM [place] Transfusion Consent obtained? Y 65 -------- Issue -------- Unit # Bld Type Product Status Date Time User Rsrvd ----- [id number] A POS LR PLAT PHER PRSMD TRFSD 09/20/13 1315 [email or web address] Unit Satisfactory? No Apparent Contamination Volume: 250 TX Begin: 09/20/131314 By AutoDft [place] End: 09/20/13 By AutoDft ----- 66 LARGE PLATELETS PRES 67 CHECKED,PLT EST. AGREES WITH INSTRUMENT VALUE. 68 Note: Persistent reduction for 3 months or more in an eGFR <60 mL/min/1.73 m2 defines CKD. Patients with eGFR values >/=60 mL/min/1.73 m2 may also have CKD if evidence of persistent proteinuria is present. The original MDRD equation for estimated GFR is not valid for patients less than 18 years of age. Additional information may be found at www.kdoqi.org. 69 CALLED MAY J AT 0932 09/19/13 by JUAN Comments to transition coach: PLEASE CALL TO [phone] 69 Note: Persistent reduction for 3 months or more in an eGFR <60 mL/min/1.73 m2 defines CKD. Patients with eGFR values >/=60 mL/min/1.73 m2 may also have CKD if evidence of persistent proteinuria is present. The original MDRD equation for estimated GFR is not valid for patients less than 18 years of age. Additional information may be found at www.kdoqi.org. 71 <=0.49 ug/mL - Low likelihood of DIC, DVT or Pulmonary Embolism >0.49 ug/ mL - Additional testing should be done to rule out DIC, DVT, or Pulmonary embolism as clinically indicated. ([facility] has established a 97.89% negative predictive value for thrombotic disease when a cutoff value of 0.5 ug/mL is used.) 72 THERAPEUTIC INR RANGE: 2.0 - 3.0 DVT, Pulmonary embolus, prophylaxis against venous thrombosis or systemic embolization in high risk patients. 2.5 - 3.5 Mechanical heart valves 73 0 - 0.5 ng/mL: No evidence of myocardial injury 0.6 - 1.4 ng/mL: Mild elevation, suggesting possible myocardial injury > 1.4 ng/mL: Consistent with myocardial injury 74 Because ethnic data is not always readily available, this report includes an eGFR for both -Americans and non- Americans. The National Kidney Disease Education Program (NKDEP) does not endorse the use of the MDRD equation for patients that are not between the ages of 18 and 70, are , have extremes of body size, muscle mass, or nutritional status, or are non- or non-. According to the National Kidney Foundation, irrespective of diagnosis, the stage of the disease is based on the level of kidney function: Stage Description GFR(mL/min/1.73 m(2)) 1 Kidney damage with normal or decreased GFR 90 2 Kidney damage with mild decrease in GFR 60- 89 3 Moderate decrease in GFR 30-59 4 Severe decrease in GFR 15-29 5 Kidney failure <15 (or dialysis) 75 HDL Interpretation: Undesirable: High Risk: Less than 40 mg/dL Desirable: Low Risk: Greater than 60 mg/dL 76 LDL Interpretation: Low Risk Optimal Level: LDL Less than 100 mg/dL Near or Above Optimal: LDL 100-129 mg/dL Borderline High Risk: LDL 130-159 mg/dL High Risk : LDL 160-189 mg/dL Very High Risk: LDL Greater than 189 mg/dL 77 REVIEWED BY REE MCCOLLUM MD CBC and smear reviewed. Thrombocytopenia present without evidence of platelet clumping or satellitosis. CBC and smear reviewed. Normochromic normocytic anemia consistent with chronic disease or acute blood loss. Procedures Date Code Description Status 06/06/2018 06288 EGD With Biopsy Completed 12/29/2017 06642 EGD With Biopsy Completed 11/05/2015 86783 Colonoscopy Completed 11/05/2015 [id number] Colonoscopy Completed 10/18/2002 [id number] Colonoscopy Completed Encounters Type Date Location Provider Dx Diagnosis Office Visit 12/20/2018 Kushal Madera MD K21.9 Gastro-esophageal 8:30a reflux disease without esophagitis K59.00 Constipation, unspecified Office Visit 12/13/2018 9:40a Primary Care Deanna Gaviria, N18.3 Chronic kidney Office disease, stage 3 (moderate) I10 Essential (primary) hypertension Office Visit 06/28/2018 2:45p Surgical Office Zaid Zhong R12 Heartburn MD, FACS Office Visit 06/22/2018 2:45p Family Medicine uday Z23 Encounter for [facility] CATERING COORDINATOR I10 Essential (primary) hypertension K21.0 Gastro-esophageal reflux disease with esophagitis E03.9 Hypothyroidism, unspecified Z23 Encounter for immunization Office Visit 06/21/2018 8:30a Kushal Madera MD K44.9 Diaphragmatic hernia without obstruction or gangrene K21.9 Gastro-esophageal reflux disease without esophagitis Office Visit 05/25/2018 10:20a Primary Care Deanna Gaviria N18.3 Chronic kidney Office disease, stage 3 (moderate) I10 Essential (primary) hypertension E83.52 Hypercalcemia E03.9 Hypothyroidism, unspecified Office Visit 04/11/2018 Surgical Trevin K21.0 Gastro-esophageal 10:00a Office Zaid reflux disease with YELITZA LEAL esophagitis Office Visit 03/03/2018 ARTHUR Delvalle K44.9 Diaphragmatic hernia 8:30a MD Kushal without obstruction or gangrene K21.0 Gastro-esophageal reflux disease with esophagitis Office Visit 01/11/2018 8:45a Kushal Madera MD K22.10 Ulcer of esophagus without bleeding K44.9 Diaphragmatic hernia without obstruction or gangrene Office Visit 12/23/2017 11:00a Kushal Madera, R12 Heartburn MD Office Visit 12/14/2017 10:30a Family Grace Garcia K21.9 Gastro- esophageal [address] Jenniferleiwin, reflux disease CATERING COORDINATOR without esophagitis Office Visit 11/24/2017 11:40a Primary Care Deanna Gaviria, I10 Essential Office (primary) hypertension N18.3 Chronic kidney disease, stage 3 (moderate) E83.52 Hypercalcemia K21.9 Gastro-esophageal reflux disease without esophagitis Office Visit 10/27/2017 3:00p Primary Care Deanna Gaviria, N18.3 Chronic kidney Office MD disease, stage 3 (moderate) I10 Essential (primary) hypertension Office 10/13/2017 Family Garcia K21.9 Gastro-esophageal Visit 10:15a Medicine MAYURI Nevarez reflux disease RD without esophagitis K59.00 Constipation, unspecified Office 09/29/2017 Rodrick Lynn1.9 Gastro-esophageal Visit 8:30a Medicine MAYURI Nevarez reflux disease RD without esophagitis N18.3 Chronic kidney disease, stage 3 (moderate) K59.00 Constipation, unspecified Office Visit 12/23/2016 1:20p Primary Care Deanna Gaviria, I10 Essential ( primary) Office hypertension K21.9 Gastro-esophageal reflux disease without esophagitis N18.3 Chronic kidney disease, stage 3 (moderate) Office Visit 07/01/2016 Chelita Lynn0 Essential 1:00p Medicine MAYURI Nevarez (primary) RD hypertension E03.9 Hypothyroidism, unspecified K21.9 Gastro-esophageal reflux disease without esophagitis Z12.2 Encntr screen for malignant neoplasm of respiratory organs F17.290 Nicotine dependence, other tobacco product, uncomplicated Z23 Encounter for immunization Office 03/18/2016 Rodrick Lynn1.Hannah Gastro-esophageal Visit 1:00p Medicine Rick Zambrano CATERING COORDINATOR reflux disease RD without esophagitis E03.9 Hypothyroidism, unspecified I10 Essential (primary) hypertension Office Visit 12/17/2015 Family Garcia M25.511 Pain in right 1:30p Medicine [place] MAYURI Zambrano shoulder RD K21.9 Gastro-esophageal reflux disease without esophagitis E03.9 Hypothyroidism, unspecified Office Visit 11/13/2015 1:30p Surgical Office Romeo Z12.11 Encounter for Dean Tobar screening for M.D. malignant neoplasm of colon K57.30 Dvrtclos of lg int w/o perforation or abscess w/o bleeding Office Visit 08/07/2015 Surgical Romeo Z12.11 Encounter for 8:30a Office Dean Tobar screening for M.D. malignant neoplasm of colon Office Visit 06/06/2015 Family Garcia I10 Essential 2:00p Medicine [place] [facility] CATERING COORDINATOR hypertension Z12.11 Encounter for screening for malignant neoplasm of colon Z76.0 Encounter for issue of repeat prescription E03.9 Hypothyroidism, unspecified Z23 Encounter for immunization Office Visit 04/10/2015 Family Garcia, 401.1 Hypertension 1:00p Medicine [place] MAYURI Zambrano Benign RD 244.9 Hypothyroidism Other Unspec 607.84 Impotence Organic Origin Office Visit 09/19/2013 Chaka Flores, 287.5 Thrombocytopenia 12:34p Hunter Crane M.D. [facility] 244.9 Hypothyroidism Other Unspec Plan of Treatment Future Appointment(s):03/20/2019 9:30 am - Kenya Garcia FNP at [facility]03/23/2019 10:00 am - Kushal Delvalle MD at GI06/14/2019 10:20 am - Deanna Gaviria MD at Primary Care [id number]/20/2018 - Kenya Garcia FNPR15.2 Fecal urgencyComments:I recommend discussing with Dr. DelvalleK21.9 Gastro-esophageal reflux disease without esophagitisNew Medication:Omeprazole 20 mg - 1 by mouth every dayComments:will get clarification about cutting back on SmsvekjixfA91.3 Chronic kidney disease, stage 3 (moderate)Comments:reviewed labs as above stable -I10 Essential (primary) hypertensionComments:well controlled, perhaps TOO well controlledlow blood pressure can lead to lightheadedness, dizziness and increased risk for fallsWill need to track closelyFollow up:3 months f/u HTN & hypothyroidism - TSH a week egkmtY64.9 Hypothyroidism, unspecifiedNew Labs:Thyroid Stim Hormone, Scheduled: Comments:TSH is at upper edge of normal. Will repeat labs in 3 months.
[2019-02-08 20:14] VITALS: BP 136/67
== END 2019-02-08 20:12 | disposition short-term general hospital (02) ==
LOC: UCCORT 19:43
DX: M79.602 Pain in left arm (principal); I10 Essential (primary) hypertension
CPT/HCPCS: 93005; 99203; A9270-GY; G0463